=== PATIENT | male | born 1995 | race Caucasian/White ===

== ENCOUNTER 2022-04-09 15:19 | Emergency (ER) | payer SELFPAY ==
[~2022-04-09] VITALS: Ht 167.6 cm; Wt 59.0 kg
[2022-04-09 15:20] VITALS: BP_SYST 122
--- NOTE | 2022-04-09 21:15 | NUR ---
PER DR. CROWDER, PT WAS NOT IN LOBBY. PT LWBS
== END 2022-04-09 21:15 | disposition left against medical advice (07) ==
LOC: SED 15:19
DX: R06.02 Shortness of breath (principal); Z53.21 Procedure and treatment not carried out due to patient leaving prior to being seen by health care provider